=== PATIENT | female | born 1960 | race Two or more races ===

== ENCOUNTER → 2016-10-22 | Outpatient (CLI) | payer MEDICAID | END | disposition home or self-care (01) | LOC: CFH 07:47 | PROVIDERS: ATTEND Family Medicine | DX: Z12.31 Encounter for screening mammogram for malignant neoplasm of breast (principal) | CPT/HCPCS: G0202 ==

== ENCOUNTER → 2016-12-25 | Outpatient (CLI) | payer MEDICAID | END | disposition home or self-care (01) | LOC: RAD 16:29 | PROVIDERS: ATTEND Nurse Practitioner Family | DX: M54.15 Radiculopathy, thoracolumbar region (principal); M47.896 Other spondylosis, lumbar region | CPT/HCPCS: 72114 ==

== ENCOUNTER → 2017-01-27 | Outpatient (CLI) | payer MEDICAID | END | disposition home or self-care (01) | LOC: CVU 08:06 | PROVIDERS: ATTEND Family Medicine | DX: I83.812 Varicose veins of left lower extremity with pain (principal) | CPT/HCPCS: 93971 ==

== ENCOUNTER → 2017-10-18 | Day surgery (SDC) | payer MEDICAID ==
[~2017-10-18] VITALS: Ht 157.5 cm; Wt 86.4 kg
[~2017-10-18] MED LIST: LIDOCAINE-MPF 2% ,5ML ONE; LIDOCAINE/MPF 2%-EPI 1:200K, 20 ML ONE
[2017-10-18 09:14] VITALS: BP 121/71
== END ==
LOC: CACL 08:37
PROVIDERS: ATTEND Internal Medicine Cardiovascular Disease
DX: I83.12 Varicose veins of left lower extremity with inflammation (principal); I10 Essential (primary) hypertension; E11.9 Type 2 diabetes mellitus without complications; Z79.82 Long term (current) use of aspirin
CPT/HCPCS: 36482; C1894; J3490

== ENCOUNTER → 2017-10-20 | Outpatient (CLI) | payer MEDICAID | LOC: CVU 10:39 | PROVIDERS: ATTEND Internal Medicine Cardiovascular Disease | DX: I87.2 Venous insufficiency (chronic) (peripheral) (principal); Z98.890 Other specified postprocedural states | CPT/HCPCS: 93971 ==

== ENCOUNTER → 2018-11-04 | Outpatient (CLI) | payer MEDICAID | END | disposition home or self-care (01) | LOC: CFH 11:07 | PROVIDERS: ATTEND Internal Medicine Cardiovascular Disease | DX: I87.2 Venous insufficiency (chronic) (peripheral) (principal) ==

== ENCOUNTER → 2019-09-20 | Outpatient (CLI) | payer MEDICAID ==
[~2019-09-20] MED LIST changes: -LIDOCAINE-MPF 2% ,5ML ONE; -LIDOCAINE/MPF 2%-EPI 1:200K, 20 ML ONE; +REGADENOSON 0.4 MG/5 ML SYRINGE ONE
== END | disposition home or self-care (01) ==
LOC: CFH 07:52
PROVIDERS: ATTEND Internal Medicine Cardiovascular Disease
DX: R07.9 Chest pain, unspecified (principal); R55 Syncope and collapse
CPT/HCPCS: 78452; 93017; A9502; J2785